=== PATIENT | female | born 1965 | race Caucasian/White ===

== ENCOUNTER 2018-04-12 06:53 | Day surgery (SDC) | payer BC ==
[2018-04-05 12:54] VITALS: BMI 30.1
[~2018-04-12 06:53] MED LIST: LIDOCAINE 1%/EPI 1:100000 (50 ML MULTI DOSE VIAL) INF ONE; oxyCODONE HCL 10 MG SUSTAINED ACTING TABLET PO ONE
[2018-04-12] MEDS ORDERED: oxyCODONE HCL 10 MG SUSTAINED ACTING TABLET ONE (07:31)
--- NOTE | 2018-04-12 08:09 | HP ---
Admitting History and Physical - Admission History of Present Illness: The patient is a 52 yo female with a history of chronic low back pain. She presents today for surgery with Dr. Bautista. In the past she has had several epidural injections for the pain. Currently she uses ultram for pain control, but hasn't used any within the past 10 days. She denies any fever, CP or SOB. She has occasional numbness/tingling to her left left. Weakness from time to time with buckling in her left leg. History Source: Patient Limitations to Obtaining History: No Limitations - Past Medical History Cardiovascular: No: Deep Vein Thrombosis, HTN Pulmonary: Yes: Asthma (last used inhaler 8 months ago). No: Sleep Apnea Gastrointestinal: Yes: Gastritis Renal/: Yes: Hematuria, UTI ...LMP Comment: MELONY ...: No - Past Surgical History Past Surgical History: Yes: Breast Biopsy (bilateral lumpectomy), Cholecystectomy, Hysterectomy Additional Past Surgical History: right parotidectomy right neck lipoma anterior cervical fusion - Smoking History Smoking history: Current every day smoker Have you smoked in the past 12 months: Yes Aproximately how many cigarettes per day: 2 - Alcohol/Substance Use Hx Alcohol Use: Yes (SOCIALLY) Home Medications - Allergies Allergies/Adverse Reactions: Allergies Allergy/AdvReac Type Severity Reaction Status Date / Time Penicillins Allergy Severe Swelling Verified 04/05/18 12:37 - Home Medications Home Medications: Ambulatory Orders Alprazolam [Xanax] 0.5 mg PO ASDIR PRN 04/05/18 Estrogens, Conjugated [Premarin] 0.3 mg PO DAILY 04/05/18 Hydrocodone/Acetaminophen [[place] 5-325 Tablet] 1 each PO Q6H PRN #30 tablet MDD 8 04/12/18 Review of Systems - Review of Systems Constitutional: denies: Chills, Fever Neck: reports: Decreased ROM (with anterior/posterior flexion) Cardiovascular: denies: Chest Pain, Palpitations Respiratory: denies: Cough, SOB Gastrointestinal: denies: Abdominal Pain Genitourinary: denies: Burning, Hematuria Hematology/Lymphatic: denies: Easily Bruised, Excessive Bleeding Physical Examination Vital Signs: Vital Signs Temperature 97.8 F 04/12/18 07:43 Pulse Rate 79 04/12/18 07:43 Respiratory Rate 18 04/12/18 07:43 Blood Pressure 128/66 04/12/18 07:43 O2 Sat by Pulse Oximetry (%) 98 04/12/18 07:43 Constitutional: Yes: Well Nourished, Calm HENT: Yes: WNL, Atraumatic, Normocephalic Neck: Yes: WNL, Supple, Trachea Midline Cardiovascular: Yes: WNL, Regular Rate and Rhythm Respiratory: Yes: WNL, Regular, CTA Bilaterally Gastrointestinal: Yes: WNL, Soft. No: Tenderness Edema: No Wound/Incision: Yes: Clean/Dry, Well Approximated Neurological: Yes: WNL, Alert, Oriented ...Motor Strength: WNL, LUE, LLE, RUE, RLE Psychiatric: Yes: WNL, Alert, Oriented Problem List - Problems (1) Lumbar stenosis Assessment/Plan: Plan is for laminectomy today with Dr. Bautista She remains npo today for her procedure IV abx at the time of surgical incision DVT ppx with SCDs intraop and early ambulation Code(s): M48.061 - SPINAL STENOSIS, LUMBAR REGION WITHOUT NEUROGENIC MALIK
[2018-04-12] MEDS ORDERED: LIDOCAINE 1%/EPI 1:100000 (50 ML MULTI DOSE VIAL) INF ONE (09:09)
[2018-04-12] MEDS ORDERED: THROMBIN (BOVINE) 5,000 UNIT VIAL TP ONE (10:00)
[2018-04-12] MEDS ORDERED: GELATIN SPONGE,ABSORBABLE 1 GM PACKET TP ONE (10:01)
[2018-04-12] MEDS ORDERED: methylPREDNISolone ACET (DEPO) 40 MG/1 ML VIAL IM ONE (10:04)
[2018-04-12] MEDS ORDERED: GUM MASTIC/STORAX/MSAL/ALCOHOL 1 DRP DROPSBTL MC ONE (10:12)
[2018-04-12] MEDS ORDERED: oxyCODONE HCL 5 MG TABLET PO PRN (10:38)
--- NOTE | 2018-04-12 10:40 | OP ---
Operative Note - Note: Operative Date: 04/12/18 Pre-Operative Diagnosis: lumbar stenosis Operation: laminectomy of L4-L5 and L5-S1 Surgeon: Dong Bautista Revenue Investigator: Fozia García Anesthesiologist/CLOCK AND WATCH ASSEMBLER: Isabella Carter Estimated Blood Loss (mls): 20 Fluid Volume Replaced (mls): 1,300 Operative Report Dictated: Yes
--- NOTE | 2018-04-12 10:41 | SURG ---
Surgery Industrial Gas Fitter Note Industrial Gas Fitter: Fozia García PA-C Date of Service: 04/12/18 Diagnosis: lumbar stenosis Procedure: laminectomy of L4-L5 and L5-S1 I was present for the entirety of the operative procedure. For further detail, please refer to operative report. Visit type - Case Type Case Type: Scheduled - Emergency Emergency Visit: No ED Registration Date: 04/12/18 - Critical Care Critical Care patient: No
[2018-04-12] MEDS ORDERED: LACTATED RINGERS SOLUTION 1,000 ML IV SCH (10:45)
[2018-04-12 11:57] VITALS: TEMP 98
--- NOTE | 2018-04-12 12:00 | OP ---
DATE OF OPERATION: 04/12/2018 PREOPERATIVE DIAGNOSIS: Spinal stenosis, L4-S1. POSTOPERATIVE DIAGNOSIS: Spinal stenosis, L4-S1. PROCEDURE PERFORMED: Laminectomy, L4-S1. SURGEON: Dong Bautista MD DIGITAL ACCOUNT SUPERVISOR: ANNA Cooper ESTIMATED BLOOD LOSS: 50 mL. INTRAVENOUS FLUIDS: Per Anesthesia. ANESTHESIA: Spinal/erector spinae block. COMPLICATIONS: None. DISPOSITION: Patient brought to the PACU in stable condition. INDICATION FOR SURGERY: Patient is a 52-year-old who has been suffering from pain from her back down her legs. X-rays and MRI were completed which showed that she has spinal stenosis at L4-S1. She had gone through an exhaustive course of treatment which included medications, physical therapy, as well as injections. Unfortunately, her pain continued to persist despite all this. At this point, risks, benefits, and alternatives are discussed, and the patient consented to surgery. DESCRIPTION OF PROCEDURE: Patient was brought to the operating room by the Anesthesia staff after appropriate patient identification was performed. Spinal anesthesia was given along with an erector spinae block. Patient was able to position prone on the Chase frame to avoid all bony prominences. Two needles were placed in the back to guillermina off the L4-S1 segments. X-ray was taken to confirm this was correct. Needle was removed, and 10 mL of lidocaine with epinephrine was injected into the back. At the time, her back was prepped and draped in a sterile manner. At this point, timeout was completed. An incision was made from the top of L4 down to the bottom of S1. Dissection was carried down to the fascia. The fascia was then split open at this time. A spinal needle was placed onto the L4 lamina to guillermina off the L4-5 level. An x-ray was taken to confirm this was correct. Needle was removed, and the intraspinal segment of L4-5 and L5-S1 was removed. The spinous processes of L5 was removed. The lamina of L5 was removed. The flavum at L4-5 and L5-S1 was removed. A complete decompression was performed in such that by the end of the procedure the L5-S1 nerve roots appeared to be well decompressed. All bleeding was well controlled at this time. Steroids were placed over the nerve root. FloSeal was placed over that. The fascia was closed with a number 1 Vicryl suture. Subcutaneous tissue was closed with 2-0 Vicryl sutures. Skin was closed with 3-0 Monocryl suture. Dermabond was applied. Steri-Strips were applied. Sterile dressing was applied. Patient was placed supine on the OR bed and brought to the PACU in stable condition. DONG BAUTISTA M.D. PILAR/[id number]
[2018-04-12] MEDS ORDERED: oxyCODONE HCL 5 MG TABLET ONE (12:47)
[2018-04-12 13:22] VITALS: BP 103/65; PULSE 77
== END 2018-04-12 13:30 | disposition home or self-care (01) ==
LOC: FASU 06:53
PROVIDERS: ATTEND Orthopaedic Surgery Orthopaedic Surgery of the Spine
PROC: 01NB0ZZ Release Lumbar Nerve, Open Approach (ICD-10-PCS; principal; 2018-04-12 08:30)
DX: M48.061 Spinal stenosis, lumbar region without neurogenic claudication (principal); M48.07 Spinal stenosis, lumbosacral region
CPT/HCPCS: 72100-TC-FY; 76000-TC-FY; 94760